=== PATIENT | male | born 1950 | race Two or more races ===

== ENCOUNTER 2024-09-05 15:53 | Emergency (ER) | payer OTHER ==
[~2024-09-05] VITALS: Ht 185.4 cm; Wt 86.2 kg
[2024-09-05 18:45] LABS: HEMATOCRIT 43.1 % (39.0-48.0); HEMOGLOBIN 15.1 g/dL (13-16.00); MEAN CORPUSCULAR HEMOGLOBIN 30.8 pg (27.00-32.0); PLATELET COUNT 236 K/uL (150-450); RED CELL DISTRIBUTION WIDTH 14.3 % (11.5-14.5)
[2024-09-05 19:35] LABS: INR 1.05; PARTIAL THROMBOPLASTIN TIME 28.7 SECONDS (22.0-34.0); PROTHROMBIN TIME 11.4 SECONDS (9.0-11.5)
[2024-09-05 19:40] LABS: ALBUMIN 3.9 gm/dL (3.4-5.0); BILIRUBIN TOTAL 1.11 mg/dL (0.3-1.2); CALCIUM 9.3 mg/dL (8.5-10.1); CREATININE SERUM 0.85 mg/dL (0.70-1.30); GFR 88.6; GLOBULINA 3.7 G/DL (2.4-3.5); POTASSIUM 3.41 mEq/L (3.5-5.1); TOTAL PROTEIN 7.6 gm/dL (6.4-8.2)
[2024-09-05] MEDS ORDERED: 0.9 % SODIUM CHLORIDE 1,000 ML IV STA (20:20)
[2024-09-05] MEDS ORDERED: FAMOTIDINE/PF 20 MG/2 ML VIAL IV ONE (20:30)
[2024-09-05] MEDS ORDERED: LevETIRAcetam 500 MG/5 ML VIAL IV ONE (20:30)
[2024-09-05] MEDS ORDERED: MORPHINE SULFATE 2 MG/ML SYRINGE IV ONE (20:30)
[2024-09-05 21:21] LABS: URINE APPEARANCE Clear; URINE BILIRRUBIN Negative (NEGATIVE); URINE BLOOD Negative; URINE COLOR Yellow; URINE GLUCOSE Negative (NEGATIVE); URINE LEUKOCYTE Negative; URINE NITRATE Negative; URINE PROTEIN Negative (NEGATIVE)
[2024-09-05 21:24] LABS: URINE BACTERIA 95.4 uL (0.0-1933); URINE EPITHELIAL CELLS 3.3 uL (0.0-38.8); URINE RBC 13.6 uL (0.0-20.8)
[2024-09-05 21:35] LABS: URINE CAST 0.14 uL (0.0-1.40); URINE KETONE 80 (NEGATIVE)
== END 2024-09-06 06:12 | disposition designated cancer center or children's hospital (05) ==
LOC: ER 15:55
PROVIDERS: Emergency Medicine
DX: S06.5XAA Traumatic subdural hemorrhage with loss of consciousness status unknown, initial encounter (principal); R41.82 Altered mental status, unspecified; R42 Dizziness and giddiness; Z20.822 Contact with and (suspected) exposure to COVID-19; I10 Essential (primary) hypertension
CPT/HCPCS: 36415; 51702; 70450; 71045; 93005; 93041; 96365; 96366; 99285; J7030